=== PATIENT | male | born 1970 | race Caucasian/White ===

== ENCOUNTER 2023-11-30 04:04 | Inpatient (IN) ==
--- NOTE | 2023-11-30 04:17 | Emergency Department Note ---
Impression & Plan STEMI (ST elevation myocardial infarction), SOB (shortness of breath) ED Provider Note CHIEF COMPLAINT: Trouble breathing HISTORY OF PRESENTING ILLNESS: This 53-year-old male patient presents to the emergency department with his for evaluation of trouble breathing. The patient states that the symptoms started a couple days ago along with a cough. Got much worse tonight and woke him from sleep. Denies fevers. Denies runny nose, nasal congestion, or other URI symptoms. Symptoms are worse when he lays down or when he goes to sleep. He denies any chest pain, but has had intermittent shoulder pain recently. History of aortic valve replacement and bypass surgery. Also has a history of a stroke. He is on Plavix and aspirin. Has not noticed swelling of his legs or weight gain. He is not on any diuretics. The patient denies recent long car or plane rides or recent injury/trauma/surgery. Denies any personal history of blood clots or bleeding disorders. Denies any family history of blood clots or bleeding disorders. Denies any hormonal medication use. Denies any hemoptysis. Has aching of his bilateral lower legs, but has had that for a little while. He follows with Dr. Sultana of cardiology. Last ate before bed last evening. He states that he took his dose of aspirin and Plavix this morning before coming. The patient denies taking any erectile dysfunction medications. REVIEW OF SYSTEMS: See HPI for pertinent positives and pertinent negatives. ALLERGIES: Naproxen (Vertigo) MEDICATIONS: See below PAST MEDICAL HISTORY: See below PHYSICAL EXAM: VITALS: Vitals are noted on the nurse's note and reviewed by myself. GENERAL: The patient appears short of breath on exam. Non toxic, no acute distress, non-diaphoretic. SKIN: Capillary refill <2 sec. EYES: PERRLA. EOMI. Conjunctivae without injection, sclerae without icterus. NOSE: Patent without discharge. MOUTH: Mucous membranes moist. Uvula midline. Airway patent. NECK: Supple without nuchal rigidity. HEART: Regular rate and rhythm without murmurs gallops or rubs. LUNGS: Clear to auscultation bilaterally with possible rales without wheezes or rhonchi. The patient did appear short of breath with some accessory muscle use, but no retractions. ABDOMEN: Positive bowel sounds x 4. Normal tympanic percussion. Soft, nontender. No masses or organomegaly. Hollingsworth sign negative. No guarding or rebound tenderness. No focal RLQ or LLQ tenderness. MUSCULOSKELETAL: No significant edema of the bilateral lower extremities. Bilateral calves are nontender to palpation. NEURO: Patient was alert and oriented. DIFFERENTIAL DIAGNOSIS: Differential diagnosis includes URI, bronchitis, pneumonia, pneumothorax, hemothorax, PE, NM, pericarditis, myocarditis, airway obstruction, aspiration, pulmonary edema, asthma, COPD, CHF, pleurisy, metabolic acidosis, anemia, neoplasm, or others. ED COURSE AND MEDICAL DECISION MAKING: MONITOR: Continuous quality assurance monitor final: Order was placed for continuous quality assurance monitor final. Patient was placed on the quality assurance monitor final and continuous pulse ox. Patient was noted to be in normal sinus rhythm at an initial rate of 88 bpm per my interpretation. EKG: EKG was interpreted by myself as concern for a STEMI with ST depressions in leads II, III and aVF and ST elevations in V1 through V3. MEDICATIONS GIVEN: 500 mL normal saline solution bolus INTERPRETATION OF LABS: I interpreted the labs with full lab results as below in the lab section of this note. White blood cell count slightly elevated at 10.90. Hemoglobin normal at 14.5. Platelet count normal at 248 coags are normal. CMP without significant abnormalities. Magnesium normal. Lipase normal. TSH normal. BNP elevated at 2011. High-sensitivity troponin elevated at 378.3. Respiratory bio fire was negative. INTERPRETATION OF IMAGING: Chest x-ray as interpreted by myself and Dr. Allen shows moderate pulmonary edema with effusions, but no obvious focal consolidation. Radiology report is still pending. CONSULTATIONS: Heart Alert, on-call hospitalist CRITICAL CARE: I have personally spent 30 minutes of critical care time in the direct management of this patient. This includes bedside care, interpretation of diagnostic studies, and testing, discussion with consultants, patient, and family members, and other required patient management activities. This 30 minutes is in excess of all separately billable procedures. MDM SUMMARY: The patient presented to the emergency department for evaluation of trouble breathing. The patient states that he has been having trouble breathing over the past couple of days that is getting progressively worse. This morning he was unable to lay flat in bed because of significant symptoms. He denies chest pain per se, but does have discomfort from the shortness of breath. Has not had any fever or URI symptoms other than a mild cough. The patient does not think that he has a history of CHF. However, he does have a history of aortic valve replacement as well as bypass surgery. When I went in to examined the patient, nursing staff was at bedside attempting to place an IV and obtain blood work. I obtained the history from the patient and then looked at the EKG that was laying on the EKG machine that showed concerns for a STEMI per my interpretation that was also confirmed by Dr. Allen. A heart alert was then immediately initiated. EKG was performed at 0415, I went in to examine the patient after 419, and heart alert was paged at 0427. The patient was independently evaluated by Dr. Allen, who agrees with my assessment and treatment plan. The patient had already taken his aspirin and Plavix this morning. The patient's blood pressure was on the lower side so nitroglycerin was held. Oxygen had been placed. The patient denied any pain in the emergency department, only the shortness of breath and trouble laying flat. Chest x-ray as interpreted by myself does show moderate pulmonary edema with effusions with radiology report still pending. The patient was taken emergently to the cardiac catheterization lab by interventional cardiology. Please refer to their dictation for further details. I also spoke with the on-call hospitalist who will determine admission status based on the results of the catheterization. The patient was taken to the [facility] in stable condition. After the patient was taken to the [facility], the patient's blood work had returned. His troponin was elevated at 378.3. His BNP was also elevated at 2011. CBC without concerning abnormalities. CMP without significant abnormalities. Magnesium, lipase, and TSH were normal. Respiratory bio fire was negative. DIAGNOSIS: STEMI SOB Past Med/Surg History Medical History (Updated 11/30/23 @ 07:52 by Haily Peterson PA-C) Dyslipidemia Hypertension Aortic valve disease CABG x1 + AVR (2016) CVA (cerebral vascular accident) 06/15/2023 ([place] right MCA territory infarct and a 4 mm calcified embolus/thrombus within the right MCA bifurcation No residual effects Carotid artery disease Neck CTA 06/15/23: 50% stenosis of the proximal left internal carotid artery due to extensive calcified and noncalcified plaque. There is moderate plaque within the right carotid bifurcation without stenosis. Sleep apnea Cannot tolerate cpap Chronic obstructive pulmonary disease CAD (coronary artery disease) CABG x1 + AVR (2016) [facility] Surgical History Hx of inguinal hernia repair Hx of appendectomy Hx of colonoscopy Status post aortic valve replacement with bioprosthetic valve CABG x1 + AVR (2016) Follows with [facility] cardio Social History Smoking Status: Current every day smoker Tobacco Type: Cigarettes Cigarettes Per Day: 15; Second Hand Exposure: Yes (hx); Do You Dip or Chew Tobacco: No; Hx Alcohol Use: No Hx Substance Use: Yes Last Used Substance: Days (ago) Last Used Substance Other:: 4 days ago; uses 4-5x per month Preferred Language: Micronesian Communication Ability: Effective Tinsmith Apprentice Required: No Beliefs That Will Affect Care: None Current Living Situation: Spouse Current Living Situation Comment: with spouse Other Information That Helps Us Care for You: No Feels Safe at Home: Yes Safety Concerns: Feels Safe At This Time Assistive Devices: Denture - Upper and Denture - Lower Allergies Allergies Allergy/AdvReac Type Severity Reaction Status Date / Time naproxen AdvReac Unknown vertigo Verified 07/25/23 08:29 Home Meds Home Medications Medication Instructions Recorded Confirmed albuterol sulfate 90 mcg/actuation 2 inh inhalation Q6H PRN Shortness 02/07/23 07/25/23 breath activated powder inhaler Of Breath Or Wheezing aspirin 81 mg tablet,delayed 81 mg PO QAM 02/07/23 07/25/23 release atorvastatin 80 mg tablet 80 mg PO QAM 02/07/23 07/25/23 fenofibrate 160 mg tablet 160 mg PO QAM 02/07/23 07/25/23 fluticasone 250 mcg-salmeterol 50 1 inh inhalation BID 02/07/23 07/25/23 mcg/dose blistr powdr for inhalation (Advair Diskus) lisinopril 20 mg tablet 20 mg PO QAM 02/07/23 07/25/23 metoprolol tartrate 25 mg tablet 25 mg PO BID 02/07/23 07/25/23 Previous Rx's Medication Instructions Recorded ezetimibe 10 mg tablet 10 mg PO QAM #90 tabs 07/04/23 clopidogrel 75 mg tablet 75 mg PO QAM #30 tabs 09/04/23 Results & Data (ED) Vital Signs Vital Signs - 24 hr 11/30/23 04:07 11/30/23 04:15 11/30/23 04:25 Temperature 36.1 C L Temperature Source Temporal Artery Scan Pulse Rate 87 88 Pulse Rate [Apical] Respiratory Rate 20 Respiratory Effort / Characteristics Non-Labored Spontaneous Respiratory Depth Normal Respiratory Pattern Regular Blood Pressure 117/76 Blood Pressure [Right Arm] Blood Pressure Mean 89 Blood Pressure Mean [Right Arm] Blood Pressure Position [Right Arm] Pulse Oximetry 94 Oxygen Delivery Method Room Air Room Air Oxygen Flow Rate Sepsis Recent Fever Within 48 Hours No Sepsis New/Unexplained Change in Mental Status No Sepsis Action Taken by Nursing No Action Required 11/30/23 04:41 11/30/23 04:41 11/30/23 04:42 Temperature Temperature Source Pulse Rate 88 Pulse Rate [Apical] 85 Respiratory Rate 22 20 Respiratory Effort / Characteristics Non-Labored Spontaneous Respiratory Depth Normal Respiratory Pattern Regular Blood Pressure Blood Pressure [Right Arm] 133/87 Blood Pressure Mean Blood Pressure Mean [Right Arm] 102 Blood Pressure Position [Right Arm] Sitting Pulse Oximetry 94 94 94 Oxygen Delivery Method Room Air Room Air Room Air Oxygen Flow Rate Sepsis Recent Fever Within 48 Hours Sepsis New/Unexplained Change in Mental Status Sepsis Action Taken by Nursing 11/30/23 04:43 11/30/23 05:26 Temperature Temperature Source Pulse Rate Pulse Rate [Apical] Respiratory Rate Respiratory Effort / Characteristics Respiratory Depth Respiratory Pattern Blood Pressure Blood Pressure [Right Arm] Blood Pressure Mean Blood Pressure Mean [Right Arm] Blood Pressure Position [Right Arm] Pulse Oximetry 94 Oxygen Delivery Method Room Air Nasal Cannula Oxygen Flow Rate 2 Sepsis Recent Fever Within 48 Hours Sepsis New/Unexplained Change in Mental Status Sepsis Action Taken by Nursing Laboratory Data 11/30/23 04:40 11/30/23 04:40 Lab Results 11/30/23 11/30/23 Range/Units 04:40 04:46 WBC 10.90 H (4.8-10.8) K/ul RBC 4.64 L (4.70-6.10) M/uL Hgb 14.5 (14.0-18.0) g/dl Hct 41.4 L (42.0-52.0) % MCV 89.2 (80.0-100.0) fL MCH 31.3 (25.0-34.0) pg MCHC 35.0 (32.0-36.0) g/dL RDW Std Deviation 40.7 (36.4-46.3) fL RDW Coeff of Ruslan 12.5 (11.5-14.5) % Plt Count 248 (130-400) K/uL MPV 10.3 (9.4-12.4) fL Immature Gran % (Auto) 0.5 % Neut % (Auto) 74.1 % Lymph % (Auto) 17.1 % [place] % (Auto) 6.6 % Eos % (Auto) 1.1 % Baso % (Auto) 0.6 % Neut # (Auto) 8.08 H (1.40-6.50) K/uL Lymph # (Auto) 1.86 (1.20-3.40) K/uL Fulton # (Auto) 0.72 H (0.11-0.59) K/uL Eos # (Auto) 0.12 (0.00-0.50) K/uL Baso # (Auto) 0.07 (0.00-0.20) K/uL Immature Gran # (Auto) 0.05 (0.01-0.20) K/uL PT 10.7 (9.0-12.0) Seconds INR 1.0 (0.9-1.1) APTT 26 (21-31) Seconds PTT Ratio 0.9 Sodium 139 (136-145) mmol/L Potassium 4.2 (3.5-5.1) mmol/L Chloride 108 H (98-107) mmol/L Carbon Dioxide 25 (21-32) mmol/L Anion Gap 6 (3-11) BUN 10 (6-23) mg/dl Creatinine 0.83 (0.6-1.4) mg/dl Est Cr Clr Drug Dosing 104.8 ml/min Est GFR ( Amer) 117.3 ml/min Est GFR (Non-Af Amer) 101.2 ml/min BUN/Creatinine Ratio 12.0 (10-20) Glucose 102 H (70-99(Fasting)) mg/dl Calcium 9.3 (8.6-10.3) mg/dl Magnesium 2.1 (1.7-2.4) mg/dl Total Bilirubin 0.9 (0.2-1.0) mg/dl AST 14 (13-39) U/L ALT 16 (7-52) U/L Alkaline Phosphatase 91 (34-104) U/L Total Creatine Kinase 77 (30-223) U/L Troponin I High Sens 378.3 H* (0-20) pg/ml B-Natriuretic Peptide 2011 H (0-100) pg/ml Total Protein 6.5 (6.0-8.3) gm/dl Albumin 4.0 (3.4-5.0) gm/dl Globulin 2.5 (2.5-4.0) gm/dl Albumin/Globulin Ratio 1.6 (0.9-2) Lipase 3 L (11-82) U/L TSH 1.489 (0.300-4.500) uIu/ml Adenovirus (PCR) Not Detected (NotDetected) B. pertussis DNA (PCR) Not Detected (NotDetected) B.parapertussis DNA PCR Not Detected (NotDetected) C. pneumoniae DNA (PCR) Not Detected (NotDetected) Coronavirus OC43 (PCR) Not Detected (NotDetected) Coronavirus HKU1 (PCR) Not Detected (NotDetected) Coronavirus 229E (PCR) Not Detected (NotDetected) SARS-CoV-2 (PCR) Not Detected (NotDetected) Coronavirus NL63 (PCR) Not Detected (NotDetected) Human Metapneumovir PCR Not Detected (NotDetected) Influenza Type A (PCR) Not Detected (NotDetected) Influenza Type B (PCR) Not Detected (NotDetected) M. pneumoniae (PCR) Not Detected (NotDetected) Parainfluenza 1 (PCR) Not Detected (NotDetected) Parainfluenza 2 (PCR) Not Detected (NotDetected) Parainfluenza 3 (PCR) Not Detected (NotDetected) Parainfluenza 4 (PCR) Not Detected (NotDetected) RSV (PCR) Not Detected (NotDetected) Entero/Rhino (PCR) Not Detected (NotDetected) Administered Medications Discontinued Medications Fentanyl Citrate (Fentanyl Citrate Pf 100 Mcg/2 Ml Vial) Confirm Administered Dose 100 mcg .ROUTE .STK-MED ONE Stop: 11/30/23 04:49 Last Increment: 11/30/23 05:28 Dose: 50 mcg Documented By: HLK Heparin Sodium (Porcine) (Heparin (Porcine) 1000 Unit/Ml 10 Ml (Do All Operator Use Only)) Confirm Administered Dose 10,000 units .ROUTE .STK-MED ONE Stop: 11/30/23 04:49 Last Admin: 11/30/23 05:29 Dose: Not Given Documented By: RIYA Heparin Sodium/Sodium Chloride (Heparin In Nss Infusion 1000 Unit/500 Ml (2 U/Ml) Bag) Confirm Administered Dose 3,000 units IV .STK-MED ONE Stop: 11/30/23 04:50 Last Admin: 11/30/23 05:29 Dose: 3,000 units Documented By: RIYA Sodium Chloride (Nss) 500 mls @ 999 mls/hr IV .Q31M ONE Stop: 11/30/23 05:02 Last Admin: 11/30/23 06:48 Dose: Not Given Documented By: SAMEERA Ioversol (Optiray 350) Confirm Administered Dose 1 ml .ROUTE .ST-MED ONE Stop: 11/30/23 04:50 Last Admin: 11/30/23 05:33 Dose: 90 ml Documented By: RIYA Midazolam HCl (Midazolam Hcl 1 Mg/Ml 2ml Vial) Confirm Administered Dose 2 mg .ROUTE .STK-MED ONE Stop: 11/30/23 04:49 Last Admin: 11/30/23 05:29 Dose: 2 mg Documented By: RIYA Nicardipine HCl (Nicardipine Hcl Inj 2.5 Mg/Ml 10 Ml Amp) Confirm Administered Dose 25 mg .ROUTE .STK-MED ONE Stop: 11/30/23 04:49 Last Admin: 11/30/23 05:29 Dose: 25 mg Documented By: RIYA Nitroglycerin/Dextrose (Nitroglycerin/D5w 100mcg/Ml 20ml Syr) Confirm Administered Dose 2,000 mcg .ROUTE .STK-MED ONE Stop: 11/30/23 04:50 Last Admin: 11/30/23 05:29 Dose: 2,000 mcg Documented By: RIYA Imaging Data Radiologist's Impression: Chest X-Ray 11/30/23 04:28 XR chest 1V portable CLINICAL HISTORY: Chest pain, nonspecific TECHNIQUE: Single frontal radiograph of the chest was obtained. Comparison: Comparison is made to chest radiograph 06/15/2023 FINDINGS: Median sternotomy wires are unchanged. The cardiomediastinal silhouette is obscured. There is prominence and cephalization of the vasculature with Violet B lines seen. Airspace opacities are seen in the bilateral lower lungs. No evidence of pleural effusion or pneumothorax. IMPRESSION: Cardiomegaly and moderate pulmonary edema. Airspace opacities may represent atelectasis/pneumonia or alveolar edema. ACT 112: Negative or not required by law. Electronically signed by: Donald Montesinos M.D. 11/30/2023 7:13 AM Discharge Plan Visit Data Chief Complaint: Respiratory Problems Stated Complaint: HARD TO BREATHE ED Provider: Maggie Allen ED Midlevel Provider: Haily Peterson Discharge Problem: STEMI (ST elevation myocardial infarction), SOB (shortness of breath) Patient Disposition: Admitted As Inpatient Condition: Good Discharge Instructions Interventions: ED Discharge Assessment Last Done: 11/30/23 05:26 Discharge Problem: STEMI (ST elevation myocardial infarction) Qualifiers: Involved coronary artery: unspecified coronary artery Qualified Code(s): I21.3 - ST elevation (STEMI) myocardial infarction of unspecified site
--- NOTE | 2023-11-30 04:33 | Emergency Department Note ---
ED Visit Note Patient was seen in conjunction with Haily Peterson PA-C. Patient presented with cough and shortness of breath for the last 2 to 3 days. He woke up this morning and felt like he could not catch his breath. Had difficulties lying flat for most of the night. He is on aspirin and Plavix and has a history of a CABG. He last took his aspirin and Plavix just prior to arrival. EKG was obtained via protocols and was obtained at 4:15 AM. It does show concern for a STEMI with ST depressions in leads II, III and aVF and ST elevations in V1 through V3. EKG was not shown to provider until 4:25 AM when the STEMI was noted. A HEART alert was called at 4:27 am. Patient was taken to the It Architect with syrup blender. Will be admitted to [facility] service after catheterization. .
[2023-11-30 05:06] LABS: Basophils # (auto) 0.07 K/uL (0.00-0.20); Basophils % (auto) 0.6 %; Eosinophils # (auto) 0.12 K/uL (0.00-0.50); Eosinophils % (auto) 1.1 %; Hematocrit (blood only) 41.4 % (42.0-52.0); Hemoglobin 14.5 g/dl (14.0-18.0); Immature Granulocytes # (auto) 0.05 K/uL (0.01-0.20); Immature Granulocytes % (auto) 0.5 %; Lymphocytes # (auto) 1.86 K/uL (1.20-3.40); Lymphocytes % (auto) 17.1 %; Mean Corpuscular Hemoglobin 31.3 pg (25.0-34.0); Mean Corpuscular Volume 89.2 fL (80.0-100.0); Mean Platelet Volume 10.3 fL (9.4-12.4); Monocytes # (auto) 0.72 K/uL (0.11-0.59); Monocytes % (auto) 6.6 %; Neutrophils # (auto) 8.08 K/uL (1.40-6.50); Neutrophils % (auto) 74.1 %; Platelet Count 248 K/uL (130-400); RDW Coefficient of Variation 12.5 % (11.5-14.5); RDW Standard Deviation 40.7 fL (36.4-46.3); Red Blood Count 4.64 M/uL (4.70-6.10)
[2023-11-30 05:20] LABS: Albumin Globulin Ratio 1.6 (0.9-2); Bilirubin,Total 0.9 mg/dl (0.2-1.0); Calcium 9.3 mg/dl (8.6-10.3); Creatinine Clr Calc Pharmacy 104.8 ml/min; Est GFR (African American) 117.3 ml/min; Est GFR (Non-African American) 101.2 ml/min; Globulin 2.5 gm/dl (2.5-4.0); Magnesium 2.1 mg/dl (1.7-2.4); Potassium 4.2 mmol/L (3.5-5.1); Total Protein 6.5 gm/dl (6.0-8.3)
[2023-11-30] MEDS ORDERED: ACETAMINOPHEN 325 MG TAB PO PRN (05:28)
[2023-11-30] MEDS: fentaNYL citrate PF 100 MCG/2 ML VIAL ONE (05:28)
[2023-11-30] MEDS ORDERED: ONDANSETRON INJ 2 MG/ML 2 ML VIAL IV PRN (05:28)
[2023-11-30] MEDS: MIDAZOLAM HCL 1 MG/ML 2ML VIAL ONE (05:29)
[2023-11-30] MEDS: niCARdipine HCL INJ 2.5 MG/ML 10 ML AMP ONE (05:29)
[2023-11-30] MEDS: NITROGLYCERIN/D5W 100MCG/ML 20ML SYR ONE (05:29)
[2023-11-30] MEDS: HEPARIN (PORCINE) 1000 UNIT/ML 10 ML (CATH LAB USE ONLY) ONE (05:29)
[2023-11-30 05:31] LABS: Partial Thromboplastin Ratio 0.9; Partial Thromboplastin Time 26 Seconds (21-31); Prothrombin Time 10.7 Seconds (9.0-12.0)
[2023-11-30] MEDS: OPTIRAY 350 ONE (05:33)
[2023-11-30 05:34] LABS: Thyroid Stimulating Hormone 1.489 uIu/ml (0.300-4.500)
[2023-11-30] MEDS ORDERED: ALBUTEROL HFA 8 GM INHALER INH PRN (05:38)
[2023-11-30 05:39] LABS: Troponin I High Sensitivity 378.3 pg/ml (0-20)
[2023-11-30 05:44] LABS: Adenovirus PCR Not Detected (NotDetected); Bordetella parapertussis PCR Not Detected (NotDetected); Bordetella pertussis PCR Not Detected (NotDetected); Chlamydia pneumoniae PCR Not Detected (NotDetected); Coronavirus 229E PCR Not Detected (NotDetected); Coronavirus CoV-2 (COVID19)PCR Not Detected (NotDetected); Coronavirus HKU1 PCR Not Detected (NotDetected); Coronavirus NL63 PCR Not Detected (NotDetected); Coronavirus OC43PCR Not Detected (NotDetected); Human Metapneumovirus PCR Not Detected (NotDetected); Influenza A PCR Not Detected (NotDetected); Influenza B PCR Not Detected (NotDetected); Mycoplasma pneumoniae PCR Not Detected (NotDetected); Parainfluenza Virus 1 PCR Not Detected (NotDetected); Parainfluenza Virus 2 PCR Not Detected (NotDetected); Parainfluenza Virus 3 PCR Not Detected (NotDetected); Parainfluenza Virus 4 PCR Not Detected (NotDetected); Respiratory Syncytial VirusPCR Not Detected (NotDetected); Rhinovirus/Enterovirus PCR Not Detected (NotDetected)
--- NOTE | 2023-11-30 05:44 | Pre Anesthesia Assessment ---
Date of Service November 30, 2023 Pre Sedation Assessment Vital Signs Temp Pulse Pulse Resp BP BP Pulse Ox 11/30/23 05:26 11/30/23 04:43 94 11/30/23 04:42 85 20 133/87 94 11/30/23 04:41 88 22 94 11/30/23 04:41 94 11/30/23 04:25 88 11/30/23 04:15 11/30/23 04:07 36.1 C L 87 20 117/76 94 O2 Del Method O2 Flow Rate 11/30/23 05:26 Nasal Cannula 2 11/30/23 04:43 Room Air 11/30/23 04:42 Room Air 11/30/23 04:41 Room Air 11/30/23 04:41 Room Air 11/30/23 04:25 11/30/23 04:15 Room Air 11/30/23 04:07 Room Air Cardiovascular RRR, no murmur, no edema Respiratory normal respiratory effort, lungs clear to auscultation Pre-Sedation Airway Assessment Smoking Status: Former smoker Hx Sleep Apnea: Yes Mallampati 3 ASA 3 Notes The planned sedation has been discussed with the patient. Informed Consent was obtained. I have identified the patient, determined the appropriateness of sedation and have assessed the patient immediately prior to the procedure. All medicine(s) and interventions are by my order.
--- NOTE | 2023-11-30 05:47 | Post Anesthesia Assessment ---
Date of Service November 30, 2023 Post Sedation Assessment Vital Signs Temp Pulse Pulse Resp BP BP Pulse Ox 11/30/23 05:26 11/30/23 04:43 94 11/30/23 04:42 85 20 133/87 94 11/30/23 04:41 88 22 94 11/30/23 04:41 94 11/30/23 04:25 88 11/30/23 04:15 11/30/23 04:07 36.1 C L 87 20 117/76 94 O2 Del Method O2 Flow Rate 11/30/23 05:26 Nasal Cannula 2 11/30/23 04:43 Room Air 11/30/23 04:42 Room Air 11/30/23 04:41 Room Air 11/30/23 04:41 Room Air 11/30/23 04:25 11/30/23 04:15 Room Air 11/30/23 04:07 Room Air Recovery Score Activity: Moves 4 extremities Respiration: Deep Breath/Cough Circulation: +/-20% PreAnes Value Consciousness: Fully Awake Oxygen Saturation: > 92% On Room Air Discharge Sedation Level of Care: Fast Track Phase II Post Sedation Plan On clinical assessment, the patient appears to have tolerated the sedation without complications. Patient is recovering as anticipated. Patient will continue to be monitored by nursing and may be discharged when sedation discharge criteria are met per below protocol. Upon Completions of procedure up to 15 minutes continue every 5 minute vital signs and the P.A.R. score; then discharge to a Phase I or Fast Track to Phase II per the following guidelines: * Discharge Patient to appropriate Phase II area if PAR is 8 or greater or return to pre- procedure baseline. The post - procedure orders will be as directed. * If PAR score is less than 8 or not return to pre-procedure baseline then patient will follow Phase I monitoring till PAR is reached for Phase II. The Phase I may be done in procedure room or may call to secure a Phase I area. * If naloxone or flumazenil are used for reversal, hold in Phase I for continued monitoring from when last reversal dose was given for a minimum of 60 minutes or longer pending the nurse and/or physician discretion of patient condition before discharge to Phase II. Please call the Sedation Physician to re-evaluate and complete post-note for discharge to Phase II area. Do NOT discharge from procedure sedation or Phase 1 until post- sedation evaluation note is complete by procedure /sedation MD Sedation Discharge Instructions to be given to the patient at discharge to home. [facility] Procedure Codes (Charges) Indication for Procedure Indication for procedure: Shortness of breath Abnormal EKG Sedation/Anesthesia Procedure 1: Sedation/Anesthesia: 41960 Mod Sedation by the same physician;Init15 Min Child Age 5 & Up (Initial 15 min, start 0514) Total Sedation Time (minutes): 18 Procedure 2: Sedation/Anesthesia: 96789 Mod Sedation by the same physician; Ea [id number] Minutes (Additional 3 minutes, end time 0532) Total Sedation Time (minutes): 18
--- NOTE | 2023-11-30 05:50 | History & Physical Report ---
Date of Service November 30, 2023 Assessment & Plan (1) STEMI (ST elevation myocardial infarction): (2) Status post aorto-coronary artery bypass graft: (3) Status post aortic valve replacement with bioprosthetic valve: (4) Acute right MCA stroke: (5) Left ventricular hypertrophy by electrocardiogram: (6) Chronic obstructive pulmonary disease: (7) Carotid artery disease: (8) Obstructive sleep apnea: (9) Dyslipidemia: (10) Hypertension: (11) Bilateral carotid bruits: Plan STEMI/CAD/status post single-vessel CABG/status post bioprosthetic AVR- EKG with concerns regarding STEMI Patient taken emergently to the cardiac Orthoptist by interventional cardiology On metoprolol tartrate 25 mg p.o. twice daily, aspirin 81 mg daily, Plavix 75 mg p.o. daily and lisinopril 20 mg daily. Any changes per cardiology will be enacted Dyslipidemia- On atorvastatin 80 mg daily, Zetia 10 mg daily and fenofibrate 160 mg daily Check a fasting lipid panel COPD- Continue fluticasone-salmeterol 1 inhalation twice daily, and albuterol HFA 2 puffs every 6 hours as needed History of Present Illness Chief Complaint: The patient presented to the emergency department for concerns regarding difficulty breathing progressively worsening over the past couple days, along with nonproductive cough, which in particular worsened overnight, and woke him up from sleep. Primary Care Provider: BONNIE Calderón The patient is a 53-year-old male with a past medical history including CARMEL, LVH, bilateral carotid bruits, acute right MCA stroke with no residual deficits, status post AVR with bioprosthetic valve, status post single-vessel CABG, dyslipidemia, hypertension, carotid artery stenosis, and tobacco use. He presented emergency department with worsening shortness of breath, especially worsening when lying down over the past couple days, and a cough that woke him up from sleep. Upon presentation emergency department, part of his workup included an EKG, suggestive of STEMI, and a heart alert was called. Patient was taken emergently to the cardiac catheterization lab by interventional cardiology, and post catheterization will be admitted to the PCU for follow-up. Allergies Allergy/AdvReac Type Severity Reaction Status Date / Time naproxen AdvReac Unknown vertigo Verified 07/25/23 08:29 Home Medications Medication Instructions Recorded Confirmed Type albuterol sulfate 90 mcg/actuation 2 inh inhalation Q6H PRN Shortness 02/07/23 07/25/23 History breath activated powder inhaler Of Breath Or Wheezing aspirin 81 mg tablet,delayed 81 mg PO QAM 02/07/23 07/25/23 History release atorvastatin 80 mg tablet 80 mg PO QAM 02/07/23 07/25/23 History fenofibrate 160 mg tablet 160 mg PO QAM 02/07/23 07/25/23 History fluticasone 250 mcg-salmeterol 50 1 inh inhalation BID 02/07/23 07/25/23 History mcg/dose blistr powdr for inhalation (Advair Diskus) lisinopril 20 mg tablet 20 mg PO QAM 02/07/23 07/25/23 History metoprolol tartrate 25 mg tablet 25 mg PO BID 02/07/23 07/25/23 History ezetimibe 10 mg tablet 10 mg PO QAM #90 tabs 07/04/23 07/25/23 Rx clopidogrel 75 mg tablet 75 mg PO QAM #30 tabs 09/04/23 Rx Past Med/Surg History Medical History (Updated 11/30/23 @ 05:46 by Carlitos Golden MD) Dyslipidemia Hypertension Aortic valve disease CABG x1 + AVR (2016) CVA (cerebral vascular accident) 06/15/2023 ([place] right MCA territory infarct and a 4 mm calcified embolus/thrombus within the right MCA bifurcation No residual effects Carotid artery disease Neck CTA 06/15/23: 50% stenosis of the proximal left internal carotid artery due to extensive calcified and noncalcified plaque. There is moderate plaque within the right carotid bifurcation without stenosis. Sleep apnea Cannot tolerate cpap Chronic obstructive pulmonary disease CAD (coronary artery disease) CABG x1 + AVR (2016) [place] [facility] [place] History Hx of inguinal hernia repair Hx of appendectomy Hx of colonoscopy Status post aortic valve replacement with bioprosthetic valve CABG x1 + AVR (2016) [place] [facility] [place] Social History Smoking Status: Current every day smoker Tobacco Type: Cigarettes Cigarettes Per Day: 15; Second Hand Exposure: Yes (hx); Do You Dip or Chew Tobacco: No; Hx Alcohol Use: No Hx Substance Use: Yes Last Used Substance: Days (ago) Last Used Substance Other:: 4 days ago; uses 4-5x per month Preferred Language: Sammarinese Communication Ability: Effective Oracle Database Consultant Required: No Beliefs That Will Affect Care: None Current Living Situation: Spouse Current Living Situation Comment: with spouse Other Information That Helps Us Care for You: No Feels Safe at Home: Yes Safety Concerns: Feels Safe At This Time Assistive Devices: Denture - Upper and Denture - Lower Review of Systems Review of Systems: The patient denies chest pain, palpitations, lower extremity swelling, sore throat, fevers, chills, sweats, nausea, vomiting, diarrhea , constipation, abdominal pain, pelvic pain, blood in urine or stool, dysuria, urinary frequency or urgency, loss of consciousness, rash, abnormal bruising or bleeding, imbalance, focal or generalized weakness, numbness or tingling in arms or legs, generalized arthralgias or myalgias, back or neck pain, or night sweats. The review of systems is otherwise negative other than for that already noted above, and at least 10 systems have been reviewed. Physical Exam Physical Exam: The patient is awake, alert and oriented 3, well developed and well nourished, normocephalic and atraumatic, lying in bed and in no acute distress. HEENT--PERRL, EOMI, mucous membranes and oropharynx normal Neck--supple. No JVD. No bruits. Thyroid normal, trachea midline, no adenopathy. Heart--normal S1 and S2. No murmurs, rubs or gallops. Lungs--overall decreased breath sounds throughout with decreased excursion, few crackles at the bases bilaterally with minimal accessory muscle use Abdomen--normal bowel sounds and soft. Nontender. Nondistended, no hernias or masses, no organomegaly. Extremities--no cyanosis or clubbing. No edema. There are good distal pulses b/l. Dermatologic--normal skin turgor, normal color, no abnormal lymph nodes, no rash. Neurologic--cranial nerves II through XII grossly intact. Rheumatologic--normal range of motion. Psychiatric--normal affect. Results & Data Results & Data Vital Signs (Past 12 Hours) Vital Signs Temp Pulse Pulse Resp BP BP Pulse Ox 11/30/23 05:26 11/30/23 04:43 94 11/30/23 04:42 85 20 133/87 94 11/30/23 04:41 88 22 94 11/30/23 04:41 94 11/30/23 04:25 88 11/30/23 04:15 11/30/23 04:07 36.1 C L 87 20 117/76 94 O2 Del Method O2 Flow Rate 11/30/23 05:26 Nasal Cannula 2 11/30/23 04:43 Room Air 11/30/23 04:42 Room Air 11/30/23 04:41 Room Air 11/30/23 04:41 Room Air 11/30/23 04:25 11/30/23 04:15 Room Air 11/30/23 04:07 Room Air Laboratory Results Laboratory Results WBC 10.90 K/ul (4.8-10.8) H 11/30/23 04:40 RBC 4.64 M/uL (4.70-6.10) L 11/30/23 04:40 Hgb 14.5 g/dl (14.0-18.0) 11/30/23 04:40 Hct 41.4 % (42.0-52.0) L 11/30/23 04:40 MCV 89.2 fL (80.0-100.0) 11/30/23 04:40 MCH 31.3 pg (25.0-34.0) 11/30/23 04:40 MCHC 35.0 g/dL (32.0-36.0) 11/30/23 04:40 RDW Std Deviation 40.7 fL (36.4-46.3) 11/30/23 04:40 RDW Coeff of Ruslan 12.5 % (11.5-14.5) 11/30/23 04:40 Plt Count 248 K/uL (130-400) 11/30/23 04:40 MPV 10.3 fL (9.4-12.4) 11/30/23 04:40 Immature Gran % (Auto) 0.5 % 11/30/23 04:40 Neut % (Auto) 74.1 % 11/30/23 04:40 Lymph % (Auto) 17.1 % 11/30/23 04:40 Surry % (Auto) 6.6 % 11/30/23 04:40 Eos % (Auto) 1.1 % 11/30/23 04:40 Baso % (Auto) 0.6 % 11/30/23 04:40 Neut # (Auto) 8.08 K/uL (1.40-6.50) H 11/30/23 04:40 Lymph # (Auto) 1.86 K/uL (1.20-3.40) 11/30/23 04:40 Surry # (Auto) 0.72 K/uL (0.11-0.59) H 11/30/23 04:40 Eos # (Auto) 0.12 K/uL (0.00-0.50) 11/30/23 04:40 Baso # (Auto) 0.07 K/uL (0.00-0.20) 11/30/23 04:40 Immature Gran # (Auto) 0.05 K/uL (0.01-0.20) 11/30/23 04:40 PT 10.7 Seconds (9.0-12.0) 11/30/23 04:40 INR 1.0 (0.9-1.1) 11/30/23 04:40 APTT 26 Seconds (21-31) 11/30/23 04:40 PTT Ratio 0.9 11/30/23 04:40 Sodium 139 mmol/L (136-145) 11/30/23 04:40 Potassium 4.2 mmol/L (3.5-5.1) 11/30/23 04:40 Chloride 108 mmol/L (98-107) H 11/30/23 04:40 Carbon Dioxide 25 mmol/L (21-32) 11/30/23 04:40 Anion Gap 6 (3-11) 11/30/23 04:40 BUN 10 mg/dl (6-23) 11/30/23 04:40 Creatinine 0.83 mg/dl (0.6-1.4) 11/30/23 04:40 Est Cr Clr Drug Dosing 104.8 ml/min 11/30/23 04:40 Est GFR ( Amer) 117.3 ml/min 11/30/23 04:40 Est GFR (Non-Af Amer) 101.2 ml/min 11/30/23 04:40 BUN/Creatinine Ratio 12.0 (10-20) 11/30/23 04:40 Glucose 102 mg/dl (70-99(Fasting)) H 11/30/23 04:40 Calcium 9.3 mg/dl (8.6-10.3) 11/30/23 04:40 Magnesium 2.1 mg/dl (1.7-2.4) 11/30/23 04:40 Total Bilirubin 0.9 mg/dl (0.2-1.0) 11/30/23 04:40 AST 14 U/L (13-39) 11/30/23 04:40 ALT 16 U/L (7-52) 11/30/23 04:40 Alkaline Phosphatase 91 U/L (34-104) 11/30/23 04:40 Total Creatine Kinase 77 U/L (30-223) 11/30/23 04:40 Troponin I High Sens 378.3 pg/ml (0-20) H* 11/30/23 04:40 B-Natriuretic Peptide 2011 pg/ml (0-100) H 11/30/23 04:40 Total Protein 6.5 gm/dl (6.0-8.3) 11/30/23 04:40 Albumin 4.0 gm/dl (3.4-5.0) 11/30/23 04:40 Globulin 2.5 gm/dl (2.5-4.0) 11/30/23 04:40 Albumin/Globulin Ratio 1.6 (0.9-2) 11/30/23 04:40 Lipase 3 U/L (11-82) L 11/30/23 04:40 TSH 1.489 uIu/ml (0.300-4.500) 11/30/23 04:40 Adenovirus (PCR) Not Detected (NotDetected) 11/30/23 04:46 B. pertussis DNA (PCR) Not Detected (NotDetected) 11/30/23 04:46 B.parapertussis DNA PCR Not Detected (NotDetected) 11/30/23 04:46 C. pneumoniae DNA (PCR) Not Detected (NotDetected) 11/30/23 04:46 Coronavirus OC43 (PCR) Not Detected (NotDetected) 11/30/23 04:46 Coronavirus HKU1 (PCR) Not Detected (NotDetected) 11/30/23 04:46 Coronavirus 229E (PCR) Not Detected (NotDetected) 11/30/23 04:46 SARS-CoV-2 (PCR) Not Detected (NotDetected) 11/30/23 04:46 Coronavirus NL63 (PCR) Not Detected (NotDetected) 11/30/23 04:46 Human Metapneumovir PCR Not Detected (NotDetected) 11/30/23 04:46 Influenza Type A (PCR) Not Detected (NotDetected) 11/30/23 04:46 Influenza Type B (PCR) Not Detected (NotDetected) 11/30/23 04:46 M. pneumoniae (PCR) Not Detected (NotDetected) 11/30/23 04:46 Parainfluenza 1 (PCR) Not Detected (NotDetected) 11/30/23 04:46 Parainfluenza 2 (PCR) Not Detected (NotDetected) 11/30/23 04:46 Parainfluenza 3 (PCR) Not Detected (NotDetected) 11/30/23 04:46 Parainfluenza 4 (PCR) Not Detected (NotDetected) 11/30/23 04:46 RSV (PCR) Not Detected (NotDetected) 11/30/23 04:46 Entero/Rhino (PCR) Not Detected (NotDetected) 11/30/23 04:46 Code Status & VTE Plan Code Status Full code VTE Prophylaxis Plan VTE Prophylaxis will be ordered: Yes PG Care Time/CCT Total # of Minutes Spent Total Time Spent with Patient: Total time spent is greater than 50% in coordination of care (as documented) at patient's floor/unit and/or counseling patient: Coding Level of Care Code 82648 INT INP/OBS CARE 3/75MIN Diagnoses STEMI (ST elevation myocardial infarction) I21.3 Status post aorto-coronary artery bypass graft Z95.1 Status post aortic valve replacement with bioprosthetic valve Z95.3 Acute right MCA stroke I63.511 Left ventricular hypertrophy by electrocardiogram I51.7 Chronic obstructive pulmonary disease J44.9 Carotid artery disease I77.9 Obstructive sleep apnea G47.33 Dyslipidemia E78.5 Hypertension I10 Bilateral carotid bruits R09.89
--- NOTE | 2023-11-30 06:13 | Cardiac Catheterization ---
[facility] Data: Ship [employer] Cardiac Status Clinical evaluation leading to the procedure CAD Presenation: STEMI and Sx unlikely to be ischemic Anginal Classification: CCS III (Dyspnea on exertion) Heart Failure: NYHA Class: CCS III Cardiogenic Shock within 24 Hours: No Cardiac Arrest within 24 Hours: No Imaging Studies Past 6 Months: Yes Stress Studies Past 6 Months: No Coronary Anatomy Left Main (% Stenosis): Normal LAD (% Stenosis): Mid (95%) D1 (% Stenosis): Normal D2 (% Stenosis): Normal Circumflex (% Stenosis): Normal OM1 (% Stenosis): Normal OM2 (% Stenosis): Normal L PL1 (% Stenosis): Normal L PL2 (% Stenosis): Normal RCA (% Stenosis): Normal R PDA (% Stenosis): Proximal (30 to 40%) R PL1 (% Stenosis): Normal Ramus (% Stenosis): Normal Diagnostic Physicians Name: Aayush Pennington MD, PhD Closure Device Recommendations: Medical Therapy and/or Counseling Cardiac Cath Procedure Full Procedure Date November 30, 2023 Pre-Procedure Diagnosis Pre-Procedure Diagnosis: STEMI AUC Score AUC Score: 09 Post-Procedure Diagnosis Post-Procedure Diagnosis: Severe CAD Procedure(s) Performed Procedure(s) Performed: Coronary Angiography, Ultrasound Guided Vascular Access, Aortography and Bypass Graft Angiography Residential Real Estate Assistant Aayush Pennington MD, PhD Estimated Blood Loss Estimated Blood Loss: 10 cc Medication(s) Medication(s): Fentanyl, Lidocaine 1% and Versed Summary of Findings Brief description: Patient was brought to the cardiac catheterization suite where he was shaved and prepped in a sterile fashion. Sedated using IV Versed and fentanyl. Soft tissues on the right groin were anesthetized using 10 mL of 1% Xylocaine. Using the ultrasound for guidance (image saved), the right femoral artery was accessed and a 6 [place]ian femoral artery sheath was placed. All catheters were advanced and exchanged over a 0.035 J-tip wire. Left coronary angiography was performed in orthogonal views with a 6 Liberian JL 5 diagnostic catheter. Right coronary angiography was performed in orthogonal views with a 5 Liberian JR4 diagnostic catheter. BARON bypass graft angiography was performed with a 5 [place] JR4 diagnostic catheter. Supravalvular aortography was performed with a 5 [place]ian pigtail catheter. All diagnostic catheters were removed. Limited right femoral artery angiography was performed to evaluate for closure. Findings were favorable, therefore, the femoral artery sheath was exchanged for a 6 [place]ian Angio-Seal closure device. This was deployed in the recommended fashion. We obtained immediate hemostasis and the patient remained asymptomatic. He was returned to the recovery area. This ended the case. Coronary angiography findings: SYW-fnlli-rxtdqic vessel trifurcating into LAD, ramus, and circumflex. No disease. DKE-yihpz-rwgpzrf and transapical vessel. Proximal segment with mild luminal irregularities. Gives a large branching first diagonal without significant disease. The mid segment just before transitions to the distal segment has apparent 95% stenosis. There is complete additive flow noted in the distal vessel. QUu-jojdi-dcpnjgd and nondominant. Travels in AV groove giving a large branching OM1 and then a small OM 2. Distal vessel then terminates as 2 small posterolateral branches. There is no angiographically significant disease in the circumflex or its branches. Ramus-small to medium caliber without disease. RCA-this is large caliber and dominant. Bifurcates distally into a large caliber PDA and a large caliber multi branching posterolateral. The PDA has proximal 30 to 40% stenosis. The remainder of the RCA and its branches have no angiographically significant disease. BARON to LAD-large caliber and widely patent vessel. Distal anastomosis on the distal LAD. This is well-visualized on antegrade injection showing that the vessel wraps the apex and provides several small branches. There is also some retrograde filling to the level of the mid LAD lesion with small reflux into the diagonal branch. Supravalvular aortography-at least 3+ aortic regurgitation. It appears that may be perivalvular. Could be exacerbated by pigtail catheter location. Summary: 1. Single lesion of significance in the mid LAD. Likely unchanged from prior. Patent BARON to LAD bypass. No new lesions in the other coronaries. Therefore, this is not an ACS. 2. Fairly significant prosthetic aortic valve insufficiency of unknown duration/etiology. Probably perivalvular. 3. Continue guideline directed medical therapy for secondary prevention of coronary disease. 4. Consider additional workup to evaluate the aortic bioprosthetic valve. Hemodynamics Rest Ao:: 91/73 mmHg Final Ao: 91/64 mm LV: Not performed Recommendations Recommendations: Medical Therapy and/or Counseling Radiation Exposure (mGy) 1027 mGy, fluoroscopy time 4.5 minutes Contrast (mls) 90 Anesthesia 2 mg Versed, 50 mcg fentanyl IV. Start time 0514, end time 0532 Procedural Complication(s) None I attest to the content of the Intraoperative Record and any orders documented therein. Any exceptions are noted below. [facility] Card Cath Procedure Codes Cardiac Catheterization Procedure 1: Cardiovascular Cath Procedures: 02703 Coronaries and Grafts/IM (venous & atrial) Procedure 2: Cardiovascular Cath Procedures: 12029 Supravalvular Aortography (Injection during Cardiac Cath) Therapeutic Services & Ancillary Procedure 1: Cardiovascular Tx and Anc Procedures: 04309 Ultrasonic Guidance Vascular Access Moderate Sedation Procedure 1: Sedation/Anesthesia: 62289 Mod Sedation by the same physician;Init15 Min Child Age 5 & Up (Initial 15 minutes, start 0514) Procedure 2: Sedation/Anesthesia: 84103 Mod Sedation by the same physician; Ea [id number] Minutes (Additional 3 minutes, and 0532) PG Care Time/CCT Total # of Minutes Spent Total Time Spent with Patient: Total time spent is greater than 50% in coordination of care (as documented) at patient's floor/unit and/or counseling patient:
[2023-11-30] MEDS: SODIUM CHLORIDE 0.9% 500 ML IV ONE (06:48)
--- NOTE | 2023-11-30 07:14 | XRay Report ---
XR chest 1V portable CLINICAL HISTORY: Chest pain, nonspecific TECHNIQUE: Single frontal radiograph of the chest was obtained. Comparison: Comparison is made to chest radiograph 06/15/2023 FINDINGS: Median sternotomy wires are unchanged. The cardiomediastinal silhouette is obscured. There is promine nce and cephalization of the vasculature with Violet B lines seen. Airspace opacities are seen in the bilateral lower lungs. No evidence of pleural effusion or pneumothorax. IMPRESSION: Cardiomegaly and moderate pulmonary edema. Airspace opacities may represent atelectasis/pneumonia or alveolar edema. ACT 112: Negative or not required by law. Electronically signed by: Donald Montesinos M.D. 11/30/2023 7:13 AM
[2023-11-30] MEDS: FENOFIBRATE NANOCRYSTALLIZED 145 MG TABLET PO SCH (12:03)
[2023-11-30] MEDS: FLUTICASONE/VILANTEROL 100/25MCG 14 PUFFS/INHALER INH SCH (12:03)
[2023-11-30] MEDS: ASPIRIN 81 MG ECTAB PO SCH (12:03)
[2023-11-30] MEDS: EZETIMIBE 10 MG TAB PO SCH (12:03)
[2023-11-30] MEDS: lisinopril 20 MG TAB PO SCH (12:03)
[2023-11-30] MEDS: ATORVASTATIN 40 MG TAB PO SCH (12:03)
[2023-11-30] MEDS: METOPROLOL TARTRATE 25 MG TAB PO SCH ×2 (12:04→21:52)
[2023-11-30] MEDS: NITROGLYCERIN SL 0.4 MG/TAB TAB ONE (12:05)
[2023-11-30] MEDS ORDERED: ALBUT/IPRATROP 3MG/0.5MG NEB 3 ML VIAL NEB PRN (16:02)
--- NOTE | 2023-11-30 16:14 | Hospitalist Progress Note ---
Date of Service November 30, 2023 Assessment & Plan (1) STEMI (ST elevation myocardial infarction): Plan: pt was heart alert, emergent cath with non occlusive disease does have distal disease, recommend medical management on metoprolol, reduce juan pablo i to help with adding nitrate S/p Cabg and Bioprosthetic Aovr previous cryptogenic embolic stroke, R MCA, has subclinical carotid artery disease <50% bilateral -> KEVEN 08/17 ef55%, no shunt, thickened valve leaflets, no vegetations or embolic source remains on DAPT, STATIN, ezetimibe, fenofibrate, B Ricky pts biggest complaint is SOB, had episode in room, gave nitro without change (2) Chronic obstructive pulmonary disease: Plan: Continue fluticasone-salmeterol 1 inhalation twice daily, and albuterol HFA 2 puffs every 6 hours as needed quit smoking this year adding umeclidinium (3) Carotid artery disease: (4) Obstructive sleep apnea: Plan medical management of CAD and maximize COPD treatment Admission and Anticipated Discharge Date Admission Date: November 30, 2023 Results & Data Results & Data Vital Signs (Past 12 Hours) Vital Signs Temp Pulse Pulse Resp BP Pulse Ox Pulse Ox 11/30/23 15:07 97.9 F 92 H 18 117/73 94 11/30/23 14:55 11/30/23 12:08 11/30/23 11:38 97.3 F L 95 H 18 126/83 95 11/30/23 07:06 88 18 116/75 92 11/30/23 06:26 98.4 F 88 18 116/75 92 11/30/23 06:09 90 18 118/78 96 11/30/23 05:57 88 18 111/71 96 11/30/23 05:28 92 11/30/23 05:26 11/30/23 04:43 94 11/30/23 04:42 85 20 133/87 94 11/30/23 04:41 88 22 94 11/30/23 04:41 94 11/30/23 04:25 88 11/30/23 04:15 O2 Del Method O2 Del Method O2 Flow Rate 11/30/23 15:07 Room Air 11/30/23 14:55 Room Air 11/30/23 12:08 Room Air 11/30/23 11:38 Room Air 11/30/23 07:06 Room Air 11/30/23 06:26 Room Air 11/30/23 06:09 Room Air 11/30/23 05:57 Room Air 11/30/23 05:28 Room Air 11/30/23 05:26 Nasal Cannula 2 11/30/23 04:43 Room Air 11/30/23 04:42 Room Air 11/30/23 04:41 Room Air 11/30/23 04:41 Room Air 11/30/23 04:25 11/30/23 04:15 Room Air Laboratory Results reviewed cbc reviewed chemistry PG Care Time/CCT Total # of Minutes Spent Total Time Spent with Patient: Total time spent is greater than 50% in coordination of care (as documented) at patient's floor/unit and/or counseling patient: Coding Level of Care Code None Diagnoses STEMI (ST elevation myocardial infarction) I21.3 Involved coronary artery: unspecified coronary artery Chronic obstructive pulmonary disease J44.9 Carotid artery disease I77.9 Obstructive sleep apnea G47.33 (1) STEMI (ST elevation myocardial infarction) Involved coronary artery: unspecified coronary artery Qualified Code(s): I21.3 - ST elevation (STEMI) myocardial infarction of unspecified site
--- NOTE | 2023-11-30 16:49 | Electrocardiogram Report ---
Test Reason : Blood Pressure : / mmHG Vent. Rate : 082 BPM Atrial Rate : 082 BPM P-R Int : 144 ms QRS Dur : 110 ms QT Int : 396 ms P-R-T Axes : 055 013 186 degrees QTc Int : 462 ms Normal sinus rhythm Left atrial enlargement Left ventricular hypertrophy with repolarization abnormality ( Sokolow-Healy , [place] product ) Old Anteroseptal infarct (cited on or before 07-FEB-2023) Abnormal ECG When compared with ECG of 15-JUN-2023 15:11, ST elevation in Anterior leads more pronounced Confirmed by Bismark Ramírez ([id number]) on 11/30/2023 4:49:07 PM Referred By: REFERRED SELF Confirmed By:Bismark Ramírez
[2023-11-30] MEDS: LORazepam 0.5 MG TAB PO STA (17:10)
[2023-11-30] MEDS: FUROSEMIDE INJ 20 MG/2 ML VIAL IV ONE (17:10)
--- NOTE | 2023-11-30 18:26 | XCELERA ---
[id number] \\[id number]
[2023-11-30] MEDS: LORazepam 0.5 MG TAB PO PRN (21:51)
[2023-12-01 06:24] LABS: Basophils # (auto) 0.07 K/uL (0.00-0.20); Basophils % (auto) 0.8 %; Eosinophils # (auto) 0.12 K/uL (0.00-0.50); Eosinophils % (auto) 1.4 %; Hematocrit (blood only) 40.6 % (42.0-52.0); Hemoglobin 14.3 g/dl (14.0-18.0); Immature Granulocytes # (auto) 0.02 K/uL (0.01-0.20); Immature Granulocytes % (auto) 0.2 %; Lymphocytes # (auto) 1.53 K/uL (1.20-3.40); Lymphocytes % (auto) 17.6 %; Mean Corpuscular Hemoglobin 31.3 pg (25.0-34.0); Mean Corpuscular Hgb Conc 35.2 g/dL (32.0-36.0); Mean Corpuscular Volume 88.8 fL (80.0-100.0); Mean Platelet Volume 10.5 fL (9.4-12.4); Monocytes # (auto) 0.65 K/uL (0.11-0.59); Monocytes % (auto) 7.5 %; Neutrophils # (auto) 6.31 K/uL (1.40-6.50); Neutrophils % (auto) 72.5 %; Platelet Count 237 K/uL (130-400); RDW Coefficient of Variation 12.4 % (11.5-14.5); RDW Standard Deviation 40.2 fL (36.4-46.3); Red Blood Count 4.57 M/uL (4.70-6.10)
[2023-12-01 06:29] LABS: Albumin Globulin Ratio 1.8 (0.9-2); Albumin Level 3.9 gm/dl (3.4-5.0); BUN Creatinine Ratio 11.9 (10-20); Bilirubin,Total 0.7 mg/dl (0.2-1.0); Calcium 8.8 mg/dl (8.6-10.3); Creatinine Clr Calc Pharmacy 106.2 ml/min; Est GFR (African American) 116.7 ml/min; Est GFR (Non-African American) 100.7 ml/min; Globulin 2.2 gm/dl (2.5-4.0); Potassium 4.1 mmol/L (3.5-5.1); Total Protein 6.1 gm/dl (6.0-8.3)
[2023-12-01 06:37] LABS: Troponin I High Sensitivity 327.8 pg/ml (0-20)
--- NOTE | 2023-12-01 06:56 | Anesthesiology Consultation ---
Date of Service December 01, 2023 Assessment & Plan (1) Encounter for pre-operative examination: Chart Review Chart Review: Acceptable Risk for Surgery and Patient NOT seen in Pre Admission Testing Consults Requested none History Surgery Operation Date: 11/30/23 05:00 Proposed Procedures p Cardiac Cath Procedure - Aayush Pennington MD, PhD Operation Date: 12/01/23 07:30 Proposed Procedures p Transesophageal Echo w/Anesthesia - Bismark Ramírez MD Height/Weight Height: 5 ft 10 in Weight: 83.9 kg Allergies Allergy/AdvReac Type Severity Reaction Status Date / Time naproxen AdvReac Unknown vertigo Verified 07/25/23 08:29 Medications Home Medications Medication Instructions Recorded Confirmed Last Taken albuterol sulfate 90 mcg/actuation 2 inh inhalation Q6H PRN Shortness 02/07/23 07/25/23 Unknown breath activated powder inhaler Of Breath Or Wheezing aspirin 81 mg tablet,delayed 81 mg PO QAM 02/07/23 07/25/23 Unknown release atorvastatin 80 mg tablet 80 mg PO QAM 02/07/23 07/25/23 Unknown fenofibrate 160 mg tablet 160 mg PO QAM 02/07/23 07/25/23 Unknown fluticasone 250 mcg-salmeterol 50 1 inh inhalation BID 02/07/23 07/25/23 Unknown mcg/dose blistr powdr for inhalation (Advair Diskus) lisinopril 20 mg tablet 20 mg PO QAM 02/07/23 07/25/23 Unknown metoprolol tartrate 25 mg tablet 25 mg PO BID 02/07/23 07/25/23 Unknown ezetimibe 10 mg tablet 10 mg PO QAM #90 tabs 07/04/23 07/25/23 Unknown clopidogrel 75 mg tablet 75 mg PO QAM #30 tabs 09/04/23 Unknown Active Medications Generic Name Dose Route Start Last Admin Trade Name Freq PRN Reason Stop Dose Admin Aspirin 81 mg 11/30/23 09:00 11/30/23 12:03 Aspirin 81 Mg Ectab PO 12/30/23 08:59 Not Given QAM [facility] Atorvastatin Calcium 80 mg 11/30/23 09:00 11/30/23 12:03 Atorvastatin 40 Mg Tab PO 12/30/23 08:59 Not Given QAM [facility] Ezetimibe 10 mg 11/30/23 09:00 11/30/23 12:03 Ezetimibe 10 Mg Tab PO 12/30/23 08:59 Not Given QAM [facility] Fenofibrate 145 mg 11/30/23 09:00 11/30/23 12:03 Fenofibrate Nanocrystallized 145 Mg Tablet PO 12/30/23 08:59 Not Given QAM [facility] Fluticasone/Vilanterol 1 puffs 11/30/23 09:00 11/30/23 12:03 Fluticasone/Vilanterol 100/25mcg 14 Puffs/Inhaler INH 12/30/23 08:59 Not Given DAILY [facility]MA Lorazepam 0.5 mg 11/30/23 18:29 12/01/23 06:23 Lorazepam 0.5 Mg Tab PO 12/30/23 18:28 0.5 mg Q6H PRN Administration Anxiety Metoprolol Tartrate 12.5 mg 11/30/23 21:00 11/30/23 21:52 Metoprolol Tartrate 25 Mg Tab PO 12/30/23 20:59 12.5 mg BID SELMA Administration Past Medical History Medical History Dyslipidemia Hypertension Aortic valve disease CABG x1 + AVR (2016) CVA (cerebral vascular accident) 06/15/2023 ([place])- right MCA territory infarct and a 4 mm calcified embolus/thrombus within the right MCA bifurcation No residual effects Carotid artery disease Neck CTA 06/15/23: 50% stenosis of the proximal left internal carotid artery due to extensive calcified and noncalcified plaque. There is moderate plaque within the right carotid bifurcation without stenosis. Sleep apnea Cannot tolerate cpap Chronic obstructive pulmonary disease CAD (coronary artery disease) CABG x1 + AVR (2016) Follows with [facility] cardio Past Surgical History Surgical History Hx of inguinal hernia repair Hx of appendectomy Hx of colonoscopy Status post aortic valve replacement with bioprosthetic valve CABG x1 + AVR (2016) Follows with [facility] cardio Social History Smoking Status: Current every day smoker Smoking cigarettes per day: 15 Do You Dip or Chew Tobacco: No Hx Alcohol Use: No Alcohol type: beer alcohol intake frequency: 3 or more drinks per day Hx Substance Use: Yes substance use type: marijuana Last Used Substance: Days (ago) Last Used Substance Other:: 4 days ago; uses 4-5x per month Physical Exam Vital Signs Last Vital Signs Temp 36.6 C 11/30/23 22:57 Pulse 93 H 12/01/23 07:10 Resp 18 12/01/23 07:10 BP 113/75 12/01/23 07:10 Pulse Ox 98 12/01/23 07:10 O2 Del Method Room Air 12/01/23 07:10 O2 Flow Rate 2 11/30/23 05:26 Testing Laboratory Results 12/01/23 05:32 12/01/23 05:32 PT 10.7 Seconds (9.0-12.0) 11/30/23 04:40 INR 1.0 (0.9-1.1) 11/30/23 04:40 APTT 26 Seconds (21-31) 11/30/23 04:40 Electrocardiogram Date: 11/30/23 Normal sinus rhythm Left atrial enlargement Left ventricular hypertrophy with repolarization abnormality ( Sokolow-Healy , Tato product ) Old Anteroseptal infarct (cited on or before 07-FEB-2023) Abnormal ECG When compared with ECG of 15-JUN-2023 15:11, ST elevation in Anterior leads more pronounced Confirmed by Bismark Ramírez ([id number]) on 11/30/2023 4:49:07 PM Chest X-Ray Date: 11/30/23 XR chest 1V portable CLINICAL HISTORY: Chest pain, nonspecific TECHNIQUE: Single frontal radiograph of the chest was obtained. Comparison: Comparison is made to chest radiograph 06/15/2023 FINDINGS: Median sternotomy wires are unchanged. The cardiomediastinal silhouette is obscured. There is prominence and cephalization of the vasculature with Violet B lines seen. Airspace opacities are seen in the bilateral lower lungs. No evidence of pleural effusion or pneumothorax. IMPRESSION: Cardiomegaly and moderate pulmonary edema. Airspace opacities may represent atelectasis/pneumonia or alveolar edema. ACT 112: Negative or not required by law. Echocardiogram Date: 11/30/23 LV is moderately dilated. LV systolic function is moderately reduced. EF 30-35% Mild to moderate global hypokinesis of the LV There is severe apical wall hypokinesis RV is normal in size and function. Bioprosthetic aortic valve Opening of the prosthetic valve appears to be limited. Several valvular aortic stenosis. Moderate to severe aortic regurgitation. Mild to moderate miltral regurgitation.
[2023-12-01] MEDS ORDERED: ETOMIDATE 2 MG/ML 20 ML VIAL IV ONE (07:00)
[2023-12-01] MEDS ORDERED: LIDOCAINE 2% 2 ML VIAL/AMP(20MG/ML) INFIL ONE (07:00)
[2023-12-01] MEDS ORDERED: ONDANSETRON INJ 2 MG/ML 2 ML VIAL ONE (07:00)
[2023-12-01] MEDS ORDERED: PROPOFOL IV EMULSION 10 MG/ML 20 ML VIAL IV ONE ×6 (07:00→07:04)
[2023-12-01] MEDS ORDERED: BENZOCAINE/TETRACAIN/BUTAM 50 APPLN/5 GM CAN EXT ONE (07:03)
--- NOTE | 2023-12-01 08:03 | Anesthesiology Progress Note ---
Date of Service December 01, 2023 Anesthesia Post Procedure Vital Signs Vital Signs: Temp Pulse Pulse Resp BP BP Pulse Ox 12/01/23 07:10 93 H 18 113/75 98 11/30/23 22:57 36.6 C 91 H 18 102/66 93 11/30/23 22:00 94 H 11/30/23 22:00 11/30/23 19:00 36.8 C 96 H 18 122/81 92 11/30/23 15:07 36.6 C 92 H 18 117/73 94 11/30/23 14:55 11/30/23 12:08 11/30/23 11:38 36.3 C L 95 H 18 126/83 95 O2 Del Method 12/01/23 07:10 Room Air 11/30/23 22:57 Room Air 11/30/23 22:00 11/30/23 22:00 Room Air 11/30/23 19:00 Room Air 11/30/23 15:07 Room Air 11/30/23 14:55 Room Air 11/30/23 12:08 Room Air 11/30/23 11:38 Room Air Transfer of Care Handoff Completed per policy Notes Mental Status: alert / awake / arousable and participated in evaluation Patient Amnestic to Procedure: Yes Nausea / Vomiting: adequately controlled Pain: adequately controlled Airway Patency, RR, SpO2: stable & adequate BP & HR: stable & adequate Hydration State: stable & adequate Anesthetic Complications: no major complications apparent and Pt Satisfied with anesthetic care
[2023-12-01] MEDS ORDERED: lisinopril 5 MG TAB PO SCH (09:00)
[2023-12-01] MEDS: UMECLIDINIUM BROMIDE 62.5MCG/BLISTER 7 PUFFS/INHALER INH SCH (09:55)
--- NOTE | 2023-12-01 10:52 | Electrocardiogram Report ---
Test Reason : Blood Pressure : / mmHG Vent. Rate : 085 BPM Atrial Rate : 085 BPM P-R Int : 144 ms QRS Dur : 116 ms QT Int : 400 ms P-R-T Axes : 024 -24 159 degrees QTc Int : 476 ms Normal sinus rhythm Old Anteroseptal infarct (cited on or before 07-FEB-2023) Left ventricular hypertrophy with QRS widening and repolarization abnormality Abnormal ECG When compared with ECG of 30-NOV-2023 04:15, ST elevation in Anteroseptal leads less pronounced Confirmed by Bismark Ramírez ([id number]) on 12/01/2023 10:51:52 AM Referred By: REFERRED SELF Confirmed By:Bismark Ramírez
[2023-12-01 14:53] LABS: iSTAT Creatinine 0.8 mg/dl (0.6-1.3); iSTAT Hemoglobin 14.3 g/dl (14.0-18.0); iSTAT Ionized Calcium 1.18 mmol/l (1.12-1.32); iSTAT Potassium 4.3 mmol/L (3.3-5.0)
--- NOTE | 2023-12-01 16:06 | Discharge Summary ---
Date of Service December 01, 2023 Admission HPI Per Admitting Provider The patient is a 53-year-old male with a past medical history including CARMEL, LVH, bilateral carotid bruits, acute right MCA stroke with no residual deficits, status post AVR with bioprosthetic valve, status post single-vessel CABG, dyslipidemia, hypertension, carotid artery stenosis, and tobacco use. He presented emergency department with worsening shortness of breath, especially worsening when lying down over the past couple days, and a cough that woke him up from sleep. Upon presentation emergency department, part of his workup included an EKG, suggestive of STEMI, and a heart alert was called. Patient was taken emergently to the cardiac catheterization lab by interventional cardiology, and post catheterization will be admitted to the PCU for follow-up. Principal Diagnosis aortic stenosis, STEMI ruled out by heart catheterization CAD COPD Discharge Exam Pt is much less short of breath lungs are clear with good air movement cardiac is regular with TIFFANIE Discharge Data Allergies Allergy/AdvReac Type Severity Reaction Status Date / Time naproxen AdvReac Unknown vertigo Verified 07/25/23 08:29 Procedures Performed Operation Date: 12/01/23 07:30 Actual Procedures s Echo Color Flow - Bismark Ramírez MD p Echo Transesophageal - Bismark Ramírez MD s Doppler Echo Limited/Follow Up - Bismark Ramírez MD Ordered Studies 11/30/23 04:47 CL Cath Imgs for PACS use only Stat Hospital Course (1) STEMI (ST elevation myocardial infarction): pt was heart alert, emergent cath with non occlusive disease is Beth present does have distal disease, recommend medical management S/p Cabg and Bioprosthetic Aovr previous cryptogenic embolic stroke, R MCA, has subclinical carotid artery disease <50% bilateral -> KEVEN 30-35% moderate global hypokinesis, severe Aortic Valvular aortic stenosis was Euvolemic at discharge, recommend low salt diet Discussion of need of valve replacement, has appointment with DR Sultana 12/04/23 at 4 pm reduced to just aspirin, STATIN, ezetimibe, fenofibrate, B Ricky dose reduced, stopped juan pablo i due to low blood pressures pts biggest complaint is SOB, this was helped most with ativan, Rx at discharge (2) Chronic obstructive pulmonary disease: Continue fluticasone-salmeterol 1 inhalation twice daily, and albuterol HFA 2 puffs every 6 hours as needed quit smoking this year discharged on trilogy inhaler (3) Carotid artery disease: (4) Obstructive sleep apnea: Total Time Total Time Spent Total Time Spent (In Minutes): It required greater than 30 minutes to prepare this patient for discharge. Discharge Plan Discharge Items Patient Disposition: Home - Self-Care Reason For Visit: CHEST PAIN, SOB, HEART ALERT Discharge Diagnosis: severe Aortic stenosis Condition on Discharge: Good Activity: Per Instructions section Activity Comment: no intentional exercise Non-emergency contact: Professor Of Sociology Call non-emergency contact if: your symptoms worsen Follow-up/Referrals: Isacc Sultana Jr, MD, [facility] [Physician] - 12/04/23 4:00 pm Allison Muñoz CRNP [Primary Care Provider] - (Please contact your PCP office to schedule your follow up. Thank you! ) Diet: Low Sodium (2gm) Addtl Attending Provider Instructions: Unfortunately your aortic heart valve has become thickened over time and now is very narrow, likely to the point were you should consider having it replaced, we are working to have an appointment with Dr Sultana to discuss, this is this coming Sunday 12/03 at 4 pm please arrive early as you are home if you have chest pain/pressure, unrelieved shortness of breath or dizziness/passing out, please report back to the hosptial please work hard to keep from smoking your metoprolol has been reduced and you may take 1/2 of your metoprolol twice a day plus take your ativan carefully and sparingly you are started on a new inhaler to help your breathing Pending Studies at Discharge: No Stand-Alone Forms: [facility], Smoking Cessation Medications and DC Order Prescriptions: New lorazepam 0.5 mg Tablet 0.5 mg PO Q6H PRN (Reason: anxiety) Qty: 20 0RF metoprolol tartrate 25 mg Tablet 12.5 mg PO BID Qty: 30 1RF Trelegy Ellipta 100-62.5-25 mcg blister with device 1 inh inhalation DAILY Qty: 60 0RF Continued ezetimibe 10 mg tablet 10 mg PO QAM Qty: 90 3RF aspirin 81 mg tablet,delayed release (DR/EC) 81 mg PO QAM fluticasone propion-salmeterol [Advair Diskus] 250-50 mcg/dose blister with device 1 inh inhalation BID atorvastatin 80 mg tablet 80 mg PO QAM fenofibrate 160 mg tablet 160 mg PO QAM albuterol sulfate 90 mcg/actuation aerosol powdr breath activated 2 inh inhalation Q6H PRN (Reason: Shortness Of Breath Or Wheezing) Discontinued clopidogrel 75 mg tablet 75 mg PO QAM Qty: 30 11RF Patient Comments: has not taken for a few days-prescription ran out lisinopril 20 mg tablet 20 mg PO QAM metoprolol tartrate 25 mg tablet 25 mg PO BID Discharge Orders: Discharge Order (Routine); Ordered 12/01/23 Ordered By: Randall Lane Admission Data Admit Date/Time: 11/30/23 05:28 Attending Provider: Randall Lane Admit Provider: Carlitos Golden Primary Care Provider: Allison Muñoz Other Interventions: Discharge Summary Assessment (RN) Last Done: 12/01/23 15:52 Coding Level of Care Code 91316 INP/OBS DISCH >30 MIN Diagnoses STEMI (ST elevation myocardial infarction) I21.3 Involved coronary artery: unspecified coronary artery Chronic obstructive pulmonary disease J44.9 Carotid artery disease I77.9 Obstructive sleep apnea G47.33
--- NOTE | 2023-12-01 18:52 | XCELERA ---
[id number] [id number]
== END 2023-12-01 15:54 | disposition home or self-care (01) | DRG 287 ==
LOC: ED 04:04 → CC 05:05 → 4W 05:28 → SUATTDRO 05:28
PROC: CLB.CCG (2023-11-30 05:00)
PROC: CLB.IPA (2023-11-30 05:00)